=== PATIENT | female | born 1975 | race Hispanic/Latino ===

== ENCOUNTER → 2023-09-05 | Day surgery (SDC) | payer OTHER ==
[~2023-09-05] MED LIST: DEXMEDETOMIDINE HCL 200 MCG/2 ML VIAL ONE; EPHEDRINE SULFATE INJ 50 MG/ML VIAL ONE; FUROSEMIDE40 MG PO; METOCLOPRAMIDE HCL 10 MG/2ML VIAL ONE; PROPOFOL IV EMULSION 10 MG/ML 20 ML VIAL ONE; PROPOFOL IV EMULSION 10 MG/ML 50 ML VIAL IV ONE; ROCURONIUM BROMIDE 10 MG/ML 5ML VIAL IV ONE
[2023-09-05] MEDS: LACTATED RINGER'S 1,000 ML ONE (14:38)
[2023-09-05 16:40] VITALS: BP 127/64; PULSE 79; RESP 17; O2SAT 96
== END | disposition home or self-care (01) ==
LOC: OR 13:48
PROVIDERS: ATTEND Internal Medicine Gastroenterology
DX: Z12.11 Encounter for screening for malignant neoplasm of colon (principal); K29.70 Gastritis, unspecified, without bleeding; K31.89 Other diseases of stomach and duodenum; K20.90 Esophagitis, unspecified without bleeding; K21.9 Gastro-esophageal reflux disease without esophagitis; K64.8 Other hemorrhoids; I10 Essential (primary) hypertension; R73.03 Prediabetes; E66.01 Morbid (severe) obesity due to excess calories; Z79.899 Other long term (current) drug therapy
CPT/HCPCS: 36415; 43239; 45378; 84702; J2470; J2704 ×2; J2765; J7121